=== PATIENT | female | born 1950 | race Caucasian/White ===

== ENCOUNTER 2017-01-11 15:21 | Inpatient (IN) | payer OTHER ==
[~2017-01-11] VITALS: Ht 152.4 cm; Wt 74.0 kg
[2017-01-11 15:56] LABS: HEMATOCRIT 41.1 % (36.0-46.0); MCH 33.4 PG (29.0-34.0); MCHC 34.1 G/DL (30.0-36.0); MCV 98.1 FL (83-99); MEAN PLAT.VOLUME 11.1 uM^3 (9.5-12.4); PLATELET COUNT 77 K/uL (156-360); RBC DIS.WIDTH-CV 15.6 % (11.8-14.6); RBC DIS.WIDTH-SD 55.8 % (39-53); RED BLOOD COUNT 4.19 M/uL (3.80-5.20); WHITE BLOOD COUNT 4.7 K/uL (4.1-10.2)
[2017-01-11 16:04] LABS: CHLORIDE 104 mEq/L (99-109); POTASSIUM 3.8 mEq/L (3.7-5.4); SODIUM 135 mEq/L (136-147)
[2017-01-11 16:06] LABS: GLUCOSE 113 mg/dL (70-99)
[2017-01-11 16:07] LABS: ANION GAP 10 MEQ/L (2-14)
[2017-01-11 16:10] LABS: GFR ESTIMATE (CALCULATED) > 59 mL/min/; UREA NITROGEN (BUN) 8 mg/dL (9-23)
[2017-01-11 16:17] LABS: TROP-I INTERPRETATION NEGATIVE; TROPONIN-I < 0.01 ng/mL (0.0-0.30)
[2017-01-11 20:25] LABS: POINT-OF-CARE METER ID UU14100415
[2017-01-11 22:00] VITALS: BP 186/93
[2017-01-11 22:38] LABS: Estimated Average Glucose 97 mg/dL (70-123)
[2017-01-11 22:43] LABS: ADD MIUA? YES; BILIRUBIN NEGATIVE; BLOOD SMALL; COLOR YELLOW ((YELLOW)); GLUCOSE (STRIP) NEGATIVE; KETONES NEGATIVE; LEUKOCYTES NEGATIVE; NITRITE NEGATIVE; PROTEIN (STRIP) NEGATIVE; SPECIFIC GRAVITY 1.002 (1.000-1.030); UROBILINOGEN 0.2 MG/DL (0.2-1.0)
[2017-01-11 22:45] LABS: BACTERIA NONE SEEN /HPF; EPITHELIAL CELLS RARE /HPF; MUCUS NONE SEEN /LPF; RED BLOOD CELLS 0-5 /HPF (0-5); WHITE BLOOD CELLS 0-5 /HPF (0-5)
[2017-01-11 23:08] LABS: DIRECT BILIRUBIN 0.7 mg/dL (0.0-0.3); SAMPLE HEMOLYSIS CHECK 0; SAMPLE ICTERIC CHECK 0; SAMPLE LIPEMIA CHECK 0; TOTAL BILIRUBIN 1.8 MG/DL (0.0-1.0)
[2017-01-11 23:41] LABS: ALKALINE PHOSPHATASE 73 IU/L (3-129); HDL CHOLESTEROL 24 MG/DL (Desirable>=50); LDL CHOLESTEROL 54 mg/dL (Desirable<100); NON-HDL CHOLESTEROL 64 mg/dL (Desirable<160); SERUM ETHYL ALCOHOL < 10 mg/dL; TOTAL CHOLESTEROL 88 mg/dL (Desirable<200); TRIGLYCERIDES 50 MG/DL (Normal: <150)
[2017-01-12] VITALS (7 sets, daily range): BP systolic 135–170; BP diastolic 72–88
[2017-01-12 07:52] LABS: HEMATOCRIT 41.9 % (36.0-46.0); MCHC 33.9 G/DL (30.0-36.0); MCV 100.2 FL (83-99); MEAN PLAT.VOLUME 11.4 uM^3 (9.5-12.4); PLATELET COUNT 76 K/uL (156-360); RBC DIS.WIDTH-CV 15.6 % (11.8-14.6); RBC DIS.WIDTH-SD 57.2 % (39-53); RED BLOOD COUNT 4.18 M/uL (3.80-5.20); WHITE BLOOD COUNT 2.6 K/uL (4.1-10.2)
[2017-01-12 08:18] LABS: ANION GAP 11 MEQ/L (2-14); CHLORIDE 106 MEQ/L (99-109); GFR ESTIMATE (CALCULATED) > 59 mL/min/; SAMPLE HEMOLYSIS CHECK 0; SAMPLE ICTERIC CHECK 0; SAMPLE LIPEMIA CHECK 0; SODIUM 135 MEQ/L (136-147); UREA NITROGEN (BUN) 6 mg/dL (9-23)
[2017-01-12 08:20] LABS: GLUCOSE 172 mg/dL (70-99)
[2017-01-12 08:25] LABS: POINT-OF-CARE METER ID UU13113698; POINT-OF-CARE USER ID ENVKC36
[2017-01-13 03:59] VITALS: BP 142/85
[2017-01-13 07:48] VITALS: BP 177/99
[2017-01-13] MEDS ORDERED: LEVAQUIN500 MG PO (10:51)
[2017-01-13] MEDS ORDERED: CHLORDIAZEPOXID25 MG PO (10:51)
[2017-01-13] MEDS ORDERED: Thiamine,Vitamin B1 PO (10:51)
[2017-01-13] MEDS ORDERED: VENTOLIN HFA18 GM IH (10:51)
[2017-01-13] MEDS ORDERED: PREDNISONE10 MG PO (10:51)
[2017-01-13] MEDS ORDERED: AMLODIPINE BESYL5 MG PO (10:51)
[2017-01-13] MEDS ORDERED: SPIRIVA1 INHALATI IH (10:51)
== END 2017-01-13 14:48 | disposition home or self-care (01) | DRG 190 ==
LOC: EME 15:21 → EDOF 20:03 → 4EAST 20:03
PROVIDERS: Hospitalist; Internal Medicine; Physician Assistant
DX: J44.1 Chronic obstructive pulmonary disease with (acute) exacerbation (principal); J96.01 Acute respiratory failure with hypoxia; Z99.81 Dependence on supplemental oxygen; I16.1 Hypertensive emergency; F17.210 Nicotine dependence, cigarettes, uncomplicated; F10.239 Alcohol dependence with withdrawal, unspecified; I10 Essential (primary) hypertension; J32.9 Chronic sinusitis, unspecified; Z91.14 Patient's other noncompliance with medication regimen; Z68.31 Body mass index [BMI] 31.0-31.9, adult
CPT/HCPCS: 70450; 71020; 80048; 80061; 80076; 81003; 82948; 83036; 84484; 85027; 93005; 94640; 94799; 99202; 99281; 99285; G0480; J1100; J1644; J1956; J2060; J2920; J3411; J3475; J7030

== ENCOUNTER 2017-06-02 00:06 | Emergency (ER) | payer OTHER ==
[~2017-06-02] VITALS: Ht 154.9 cm; Wt 71.6 kg
[~2017-06-02 00:06] MED LIST: AMLODIPINE BESYL5 MG PO; CHLORDIAZEPOXID25 MG PO; LEVAQUIN500 MG PO; PREDNISONE10 MG PO; SPIRIVA1 INHALATI IH; Thiamine,Vitamin B1 PO; VENTOLIN HFA18 GM IH
[2017-06-02 00:10] VITALS: BP 137/83
== END 2017-06-02 01:02 | disposition home or self-care (01) ==
LOC: EME 00:06 → EXP 00:06
PROC: 0HQ1XZZ Repair Face Skin, External Approach (ICD-10-PCS; principal; 2017-06-02)
DX: S01.81XA Laceration without foreign body of other part of head, initial encounter (principal); I86.8 Varicose veins of other specified sites; F17.200 Nicotine dependence, unspecified, uncomplicated; Z88.0 Allergy status to penicillin
CPT/HCPCS: 99281; 99284